=== PATIENT | female | born 1955 | race Caucasian/White ===

== ENCOUNTER 2020-12-18 10:32 | Observation (INO) | payer MEDICARE, OTHER ==
[2020-12-18 11:41] LABS: #Basophils 0.1 thou/uL (0.0-0.2); #Eosinphils 0.1 thou/uL (0.0-0.7); #Lymphocytes 1.7 thou/uL (1.20-3.40); #Monocytes 0.8 thou/uL (0.11-0.59); #Neutrophils 4.6 thou/uL (1.40-6.50); %Basophils 0.7 % (0.0-1.0); %Eosinophils 1.6 % (0.0-10.0); %Lymphocytes 23.5 % (21.0-51.0); %Monocytes 10.8 % (0.0-10.0); %Neutrophils 63.4 % (42.0-75.0); Hemoglobin 15.4 g/dL (12.0-16.0); Mean Corpuscular Hemoglobin 29.6 pg (27.0-31.0); Mean Corpuscular Volume 92.5 fL (78.0-98.0); Mean Platelet Volume 8.6 fL (7.4-10.4); Platelet Count 194 thou/uL (130-400); RBC Distribution Width 12.1 % (11.5-14.5); Red Blood Cell (RBC) Count 5.21 mill/uL (4.20-5.40); White Blood Cell (WBC) Count 7.3 thou/uL (4.8-10.8)
[2020-12-18 11:55] LABS: ALT (SGPT) 20 U/L (8-55); AST (SGOT) 33 U/L (5-34); Alkaline Phosphatase 85 U/L (40-110); Anion Gap 12 mmol/L (10-20); BUN (Urea Nitrogen) 12 mg/dL (9.8-20.1); Bilirubin, Total 0.7 mg/dL (0.2-1.2); Calc. Creatinine Clearance 0 mL/min (70-130); Calcium 9.3 mg/dL (7.8-10.44); Carbon Dioxide 29 mmol/L (23-31); Globulin 2.7 g/dL (2.4-3.5); Glucose 89 mg/dL (80-115); Potassium 4.8 mmol/L (3.5-5.1); Protein, Total 6.7 g/dL (5.8-8.1); Sodium 145 mmol/L (136-145)
[2020-12-18 12:02] LABS: Chloride 109 mmol/L (98-107)
[2020-12-18 12:19] LABS: CKMB 2.8 ng/mL (0-6.6)
[2020-12-18] MEDS ORDERED: Acetaminophen 650 MG Suppository PR PRN (14:18)
[2020-12-18] MEDS ORDERED: Acetaminophen 325 MG TAB PO PRN (14:18)
[2020-12-18] MEDS ORDERED: Enoxaparin Sodium 80 MG/0.8 ML SYRINGE SC SCH (15:00)
[2020-12-18 15:02] LABS: Hemoglobin A1c 5.1 % (4.0-6.0)
[2020-12-18 16:10] LABS: Troponin I 0.039 ng/mL (< 0.028)
[2020-12-18 18:32] VITALS: BMI 22.9
[2020-12-18 18:46] LABS: Troponin I 0.033 ng/mL (< 0.028)
[2020-12-18] MEDS: Enoxaparin Sodium 80 MG/0.8 ML SYRINGE SC SCH (20:29)
[2020-12-19 02:13] LABS: SARS-CoV-2 PCR by NAA Not Detected (NotDetected)
[2020-12-19 05:00] LABS: #Basophils 0.1 thou/uL (0.0-0.2); #Eosinphils 0.3 thou/uL (0.0-0.7); #Lymphocytes 2.2 thou/uL (1.20-3.40); #Monocytes 0.7 thou/uL (0.11-0.59); #Neutrophils 2.2 thou/uL (1.40-6.50); %Basophils 1.3 % (0.0-1.0); %Eosinophils 5.9 % (0.0-10.0); %Lymphocytes 39.6 % (21.0-51.0); %Monocytes 12.8 % (0.0-10.0); %Neutrophils 40.4 % (42.0-75.0); Mean Corpuscular HGB CONC 32.6 g/dL (32.0-36.0); Mean Platelet Volume 8.1 fL (7.4-10.4); Platelet Count 185 thou/uL (130-400); RBC Distribution Width 11.9 % (11.5-14.5); Red Blood Cell (RBC) Count 4.68 mill/uL (4.20-5.40); White Blood Cell (WBC) Count 5.4 thou/uL (4.8-10.8)
[2020-12-19 05:18] LABS: Anion Gap 12 mmol/L (10-20); BUN (Urea Nitrogen) 13 mg/dL (9.8-20.1); Calc. Creatinine Clearance 74 mL/min (70-130); Carbon Dioxide 26 mmol/L (23-31); Chloride 108 mmol/L (98-107); Glucose 87 mg/dL (80-115); Potassium 3.7 mmol/L (3.5-5.1); Sodium 142 mmol/L (136-145)
[2020-12-19] MEDS: Enoxaparin Sodium 80 MG/0.8 ML SYRINGE SC SCH (09:43)
[2020-12-19 12:22] VITALS: BP 145/74; TEMP 100.4
[2020-12-19] MEDS ORDERED: Carvedilol 3.125 MG TAB PO SCH (17:00)
== END 2020-12-19 16:40 | disposition home or self-care (01) ==
LOC: ERS 10:32 → 2SW 13:42
PROVIDERS: ADMIT Internal Medicine; ATTEND Family Medicine
DX: I48.0 Paroxysmal atrial fibrillation (principal); R77.8 Other specified abnormalities of plasma proteins; Z79.899 Other long term (current) drug therapy; Z20.822 Contact with and (suspected) exposure to COVID-19
CPT/HCPCS: 71045; 80048; 82553; 83036; 83735; 84484 ×2; 85025; 93005; 93306; 94760; 99285; U0003; U0005; 36415; 80053; 84443; 87635; 96372; G0378; J1650

== ENCOUNTER 2021-05-17 08:05 | Outpatient (CLI) | payer MEDICARE | END 2021-05-17 08:06 | disposition home or self-care (01) | LOC: SCSMRI 08:05 | PROVIDERS: ATTEND Orthopaedic Surgery | DX: M75.42 Impingement syndrome of left shoulder (principal); S43.432A Superior glenoid labrum lesion of left shoulder, initial encounter; S46.112A Strain of muscle, fascia and tendon of long head of biceps, left arm, initial encounter; M75.92 Shoulder lesion, unspecified, left shoulder; M19.012 Primary osteoarthritis, left shoulder ==

== ENCOUNTER 2021-07-13 13:20 | Outpatient (CLI) | payer MEDICARE ==
[2021-07-13 14:38] LABS: #Basophils 0.1 10x3/uL (0.0-0.2); #Eosinphils 0.3 10x3/uL (0.0-0.5); #Monocytes 0.7 10x3/uL (0.0-1.1); #Neutrophils 3.5 10x3/uL (1.5-8.4); %Eosinophils 3.9 % (0.0-6.0); %Lymphocytes 34.3 % (18.0-47.0); %Monocytes 9.9 % (0.0-10.0); %Neutrophils 50.8 % (40.0-75.0); Hemoglobin 15.5 g/dL (12.0-15.5); Mean Corpuscular HGB CONC 33.1 g/dL (32.0-36.0); Mean Corpuscular Hemoglobin 30.1 pg (27.0-33.0); Mean Corpuscular Volume 90.9 fl (81.6-98.3); Mean Platelet Volume 11.7 fl (7.4-10.4); Platelet Count 187 10x3/uL (150-450); Red Blood Cell (RBC) Count 5.15 10x6/uL (3.90-5.03); White Blood Cell (WBC) Count 6.9 10x3/uL (3.5-10.5)
[2021-07-13 14:43] LABS: Anion Gap 15 mmol/L (10-20); BUN (Urea Nitrogen) 17 mg/dL (9.8-20.1); Calc. Creatinine Clearance 0 mL/min (70-130); Carbon Dioxide 26 mmol/L (23-31); Chloride 105 mmol/L (98-107); Glucose 101 mg/dL (80-115); Potassium 4.1 mmol/L (3.5-5.1); Sodium 142 mmol/L (136-145)
[2021-07-14 00:08] LABS: SARS-CoV-2 PCR by NAA Not Detected (NotDetected)
== END 2021-07-13 13:21 | disposition home or self-care (01) ==
LOC: LABBT 13:20
PROVIDERS: ATTEND Orthopaedic Surgery
DX: Z01.818 Encounter for other preprocedural examination (principal); S43.432A Superior glenoid labrum lesion of left shoulder, initial encounter; Z20.822 Contact with and (suspected) exposure to COVID-19
CPT/HCPCS: 71046; 80048; 85025; U0003; U0005; 93005; 93010

== ENCOUNTER 2021-07-18 05:41 | Day surgery (SDC) | payer MEDICARE ==
[2021-07-17 10:31] VITALS: BMI 22.0
[2021-07-18] MEDS ORDERED: Fentanyl 100 MCG/2 ML VIAL ONE ×2 (06:37→06:52)
[2021-07-18] MEDS ORDERED: Midazolam HCl 2 mg/2 ml Vial ONE (06:52)
[2021-07-18] MEDS ORDERED: Sodium Chloride 0.9% 10 ML ONE (07:06)
[2021-07-18] MEDS ORDERED: Lidocaine 1% PF 5 ML VIAL ONE ×2 (07:06→07:51)
[2021-07-18] MEDS ORDERED: Ondansetron PF 4 MG/2 ML Vial ONE (07:51)
[2021-07-18] MEDS ORDERED: Rocuronium Bromide 10 MG/ML (10ML VIAL) ONE (07:51)
[2021-07-18] MEDS ORDERED: Dexamethasone 20 MG/5 ML VIAL ONE (07:51)
[2021-07-18] MEDS ORDERED: Ropivacaine 2% HCl/PF (20 MG/10 ML VIAL) ONE (07:51)
[2021-07-18] MEDS ORDERED: PROPOFOL 200 MG/20 ML VIAL ONE (07:51)
[2021-07-18] MEDS ORDERED: Ropivacaine 0.5% HCl/PF (150 MG/30 ML VIAL) ONE (07:51)
[2021-07-18] MEDS ORDERED: ePHEDrine 50 MG/ML VIAL ONE (07:51)
[2021-07-18] MEDS ORDERED: Lidocaine 1% w/Epinephrine 1:100K 20 ML VIAL ONE (08:16)
[2021-07-18] MEDS ORDERED: Ondansetron PF 4 MG/2 ML Vial IVP PRN (08:45)
[2021-07-18] MEDS ORDERED: Zolpidem Tartrate 5 MG TAB PO PRN (08:45)
[2021-07-18] MEDS ORDERED: Ropivacaine 0.2% 550 ML 550 ML NERVE BLCK SCH (08:45)
[2021-07-18] MEDS ORDERED: Promethazine HCl 25 MG/ML VIAL IM PRN (08:45)
[2021-07-18] MEDS ORDERED: SUGAMMADEX SODIUM 200 MG/2 ML VIAL ONE (09:03)
== END 2021-07-18 12:10 | disposition home or self-care (01) ==
LOC: SDC 05:41
PROVIDERS: ATTEND Orthopaedic Surgery
PROC: 0RBK4ZZ Excision of Left Shoulder Joint, Percutaneous Endoscopic Approach (ICD-10-PCS; principal; 2021-07-18)
PROC: 0LS40ZZ Reposition Left Upper Arm Tendon, Open Approach (ICD-10-PCS; 2021-07-18)
PROC: 0RHK04Z Insertion of Internal Fixation Device into Left Shoulder Joint, Open Approach (ICD-10-PCS; 2021-07-18)
PROC: 3E0T3BZ Introduction of Anesthetic Agent into Peripheral Nerves and Plexi, Percutaneous Approach (ICD-10-PCS; 2021-07-18)
DX: S43.432A Superior glenoid labrum lesion of left shoulder, initial encounter (principal); M75.112 Incomplete rotator cuff tear or rupture of left shoulder, not specified as traumatic; M25.312 Other instability, left shoulder; M19.012 Primary osteoarthritis, left shoulder; Z79.82 Long term (current) use of aspirin; Z79.899 Other long term (current) drug therapy
CPT/HCPCS: 23430; 29822; 64416; A4306; C1713; J0690; J1100; J2250; J2405; J2704; J2795; J3010; J3490

== ENCOUNTER 2022-02-25 22:17 | Observation (INO) | payer MEDICARE ==
[2022-02-26 00:36] VITALS: BMI 23.3
[2022-02-26] MEDS ORDERED: Acetaminophen 650 MG Suppository PR PRN (01:30)
[2022-02-26] MEDS ORDERED: Ondansetron PF 4 MG/2 ML Vial IVP PRN (01:30)
[2022-02-26] MEDS ORDERED: Acetaminophen 325 MG TAB PO PRN (01:30)
[2022-02-26] MEDS ORDERED: Ondansetron ODT 4 MG TAB PO PRN (01:30)
[2022-02-26 04:30] LABS: #Basophils 0.1 thou/uL (0.0-0.2); #Eosinphils 0.2 thou/uL (0.0-0.7); #Lymphocytes 2.2 thou/uL (1.20-3.40); #Monocytes 0.6 thou/uL (0.11-0.59); #Neutrophils 3.2 thou/uL (1.40-6.50); %Basophils 0.9 % (0.0-1.0); %Eosinophils 3.5 % (0.0-10.0); %Monocytes 9.5 % (0.0-10.0); Hemoglobin 13.7 g/dL (12.0-16.0); Mean Corpuscular HGB CONC 32.6 g/dL (32.0-36.0); Mean Corpuscular Hemoglobin 31.3 pg (27.0-31.0); Mean Corpuscular Volume 95.9 fL (78.0-98.0); Mean Platelet Volume 8.1 fL (7.4-10.4); Platelet Count 180 thou/uL (130-400); RBC Distribution Width 12.5 % (11.5-14.5); Red Blood Cell (RBC) Count 4.37 mill/uL (4.20-5.40); White Blood Cell (WBC) Count 6.3 thou/uL (4.8-10.8)
[2022-02-26 04:35] LABS: Hemoglobin A1c 5.2 % (4.0-6.0)
[2022-02-26 05:10] LABS: HBCM Index 0.06 S/CO (0-0.79); HBSAg Index 0.21 S/CO (0-0.99); Hep A IgM AB Non-Reactive (NonReactive); Hep A IgM S/CO 0.12 S/CO (0-0.79); Hep B Surf Ag Non-Reactive S/CO (NonReactive); Hep C IgG Ab Non-Reactive (NonReactive); Hep C Index 0.08 S/CO (0-0.79); Hepatitis B Core IgM Abs Non-Reactive (NonReactive)
[2022-02-26 05:11] LABS: Anion Gap 13 mmol/L (10-20); BUN (Urea Nitrogen) 18 mg/dL (9.8-20.1); Calc. Creatinine Clearance 66 mL/min (70-130); Calcium 9.1 mg/dL (7.8-10.44); Carbon Dioxide 24 mmol/L (23-31); Chloride 110 mmol/L (98-107); Glucose 86 mg/dL (80-115); Sodium 143 mmol/L (136-145)
[2022-02-26 05:12] LABS: ALT (SGPT) 94 U/L (8-55); AST (SGOT) 86 U/L (5-34); Albumin 3.6 g/dL (3.4-4.8); Alkaline Phosphatase 90 U/L (40-110); Bilirubin, Direct 0.3 mg/dL (0.1-0.3); Bilirubin, Total 0.6 mg/dL (0.2-1.2); Protein, Total 5.7 g/dL (5.8-8.1)
[2022-02-26] MEDS ORDERED: Aspirin 325 MG TAB PO SCH (08:00)
[2022-02-26] MEDS ORDERED: Enoxaparin Sodium 40 MG/0.4 ML SYRINGE SC SCH (09:00)
[2022-02-26] MEDS ORDERED: Lidocaine 1% PF 5 ML VIAL ONE (15:58)
[2022-02-26] MEDS ORDERED: PROPOFOL 200 MG/20 ML VIAL ONE (15:58)
[2022-02-26] MEDS ORDERED: Apixaban 5 MG TAB PO SCH (18:00)
[2022-02-26] MEDS: Flecainide 50 MG TAB PO SCH (21:12)
[2022-02-27] MEDS: Flecainide 50 MG TAB PO SCH (08:16)
[2022-02-27 08:54] LABS: ALT (SGPT) 101 U/L (8-55); AST (SGOT) 95 U/L (5-34); Alkaline Phosphatase 91 U/L (40-110); Bilirubin, Direct 0.4 mg/dL (0.1-0.3); Bilirubin, Total 1.2 mg/dL (0.2-1.2); Protein, Total 6.5 g/dL (5.8-8.1)
[2022-02-27] MEDS ORDERED: Apixaban 5 MG TAB PO SCH (09:00)
[2022-02-27 11:53] VITALS: BP 132/71; TEMP 99.1
== END 2022-02-27 12:20 | disposition home or self-care (01) ==
LOC: 2SW 23:46
PROVIDERS: ADMIT Internal Medicine; ATTEND Internal Medicine
PROC: B246ZZ4 Ultrasonography of Right and Left Heart, Transesophageal (ICD-10-PCS; principal; 2022-02-26)
PROC: 5A2204Z Restoration of Cardiac Rhythm, Single (ICD-10-PCS; 2022-02-26)
DX: I48.3 Typical atrial flutter (principal); I48.0 Paroxysmal atrial fibrillation; R74.01 Elevation of levels of liver transaminase levels; R53.1 Weakness; I87.2 Venous insufficiency (chronic) (peripheral); I95.89 Other hypotension; I08.1 Rheumatic disorders of both mitral and tricuspid valves; I70.0 Atherosclerosis of aorta; I10 Essential (primary) hypertension; Z79.82 Long term (current) use of aspirin; Z79.899 Other long term (current) drug therapy; Z20.822 Contact with and (suspected) exposure to COVID-19
CPT/HCPCS: 76705; 80048; 80074; 80076 ×2; 83036; 85025; 92960; 93005; 93312; 96372 ×2; G0378 ×2; U0003; U0005; 36415; 93010; J1650; J2704

== ENCOUNTER 2022-03-29 11:34 | Outpatient (CLI) | payer MEDICARE ==
[2022-03-29 12:40] LABS: Hemoglobin 15.1 g/dL (12.0-15.5); Mean Corpuscular HGB CONC 33.3 g/dL (32.0-36.0); Mean Corpuscular Volume 90.3 fl (81.6-98.3); Mean Platelet Volume 11.1 fl (7.4-10.4); Platelet Count 194 10x3/uL (150-450); Red Blood Cell (RBC) Count 5.03 10x6/uL (3.90-5.03); White Blood Cell (WBC) Count 5.7 10x3/uL (3.5-10.5)
[2022-03-29 12:46] LABS: PTT 31.5 sec (22.0-33.0); Prothrombin Time 10.9 sec (9.5-12.1)
[2022-03-29 12:55] LABS: Anion Gap 12 mmol/L (10-20); BUN (Urea Nitrogen) 16 mg/dL (9.8-20.1); Calc. Creatinine Clearance 0 mL/min (70-130); Calcium 9.7 mg/dL (7.8-10.44); Carbon Dioxide 29 mmol/L (23-31); Chloride 105 mmol/L (98-107); Estimated GFR 72; Glucose 86 mg/dL (80-115); Potassium 4.2 mmol/L (3.5-5.1); Sodium 142 mmol/L (136-145)
== END 2022-03-29 11:35 | disposition home or self-care (01) ==
LOC: LABBT 11:34
PROVIDERS: ATTEND Internal Medicine Cardiovascular Disease
DX: Z01.818 Encounter for other preprocedural examination (principal); I48.91 Unspecified atrial fibrillation; Z79.01 Long term (current) use of anticoagulants; Z20.822 Contact with and (suspected) exposure to COVID-19
CPT/HCPCS: 80048; 85027; 85610; 85730; 87811; 93005; 93010

== ENCOUNTER 2022-04-03 05:48 | Day surgery (SDC) | payer MEDICARE ==
[2022-04-01 09:38] VITALS: BMI 22.5
[2022-04-03] MEDS ORDERED: HYDROmorphone 2 MG/ML VIAL ONE (06:32)
[2022-04-03] MEDS ORDERED: fentaNYL Citrate/PF 100 MCG/2 ML SYRINGE ONE (06:32)
[2022-04-03] MEDS ORDERED: Midazolam HCl 2 mg/2 ml Vial ONE (06:32)
[2022-04-03] MEDS ORDERED: Heparin 10,000 UNITS/ 10 ML VIAL ONE (06:43)
[2022-04-03] MEDS ORDERED: Heparin 25,000 units/D5W 500 ML ONE (06:43)
[2022-04-03] MEDS ORDERED: Protamine Sulfate 50 MG/5 ML VIAL ONE (06:43)
[2022-04-03] MEDS ORDERED: Isoproterenol 0.2 MG/1 ML AMP ONE (06:44)
[2022-04-03] MEDS ORDERED: SUGAMMADEX SODIUM 200 MG/2 ML VIAL ONE (07:09)
[2022-04-03] MEDS ORDERED: Dexamethasone 20 MG/5 ML VIAL ONE (07:47)
[2022-04-03] MEDS ORDERED: Lidocaine 1% PF 5 ML VIAL ONE (07:47)
[2022-04-03] MEDS ORDERED: Phenylephrine 10 MG/ML VIAL ONE (07:47)
[2022-04-03] MEDS ORDERED: PROPOFOL 200 MG/20 ML VIAL ONE (07:47)
[2022-04-03] MEDS ORDERED: Ondansetron PF 4 MG/2 ML Vial ONE (07:47)
[2022-04-03] MEDS ORDERED: ePHEDrine 50 MG/ML VIAL ONE (07:47)
[2022-04-03] MEDS ORDERED: diphenhydrAMINE 50 MG/ML VIAL ONE (07:47)
[2022-04-03] MEDS ORDERED: Rocuronium Bromide 10 MG/ML (10ML VIAL) ONE (07:47)
[2022-04-03] MEDS ORDERED: Potassium Chloride 20 MEQ TAB PO PRN (08:08)
[2022-04-03] MEDS ORDERED: Furosemide 40 MG TAB PO PRN (08:08)
[2022-04-03] MEDS ORDERED: Sucralfate 1 GM TAB PO SCH (11:30)
== END 2022-04-03 16:41 | disposition home or self-care (01) ==
LOC: SDC 05:48
PROVIDERS: ATTEND Internal Medicine Cardiovascular Disease
PROC: B244ZZ3 Ultrasonography of Right Heart, Intravascular (ICD-10-PCS; principal; 2022-04-03)
PROC: 02583ZZ Destruction of Conduction Mechanism, Percutaneous Approach (ICD-10-PCS; 2022-04-03)
PROC: 02K83ZZ Map Conduction Mechanism, Percutaneous Approach (ICD-10-PCS; 2022-04-03)
PROC: 4A023FZ Measurement of Cardiac Rhythm, Percutaneous Approach (ICD-10-PCS; 2022-04-03)
PROC: 4A0234Z Measurement of Cardiac Electrical Activity, Percutaneous Approach (ICD-10-PCS; 2022-04-03)
DX: I48.0 Paroxysmal atrial fibrillation (principal); I48.3 Typical atrial flutter; I51.7 Cardiomegaly; Z79.01 Long term (current) use of anticoagulants; Z79.899 Other long term (current) drug therapy
CPT/HCPCS: 85347 ×2; 93005; 93613; 93622; 93623; 93655; 93656; 93657; 93662; C1760; C1769; J1100; J1170; J1200; J1644; J2250; J2370; J2405; J2704; J2720; J3490